=== PATIENT | male | born 1985 | race Caucasian/White ===

== ENCOUNTER 2020-03-04 09:16 | Outpatient (CLI) | payer BC ==
--- NOTE | 2020-03-04 11:49 | RAD ---
LEFT SHOULDER 3 VIEWS: Date: 03/04/2020 HISTORY: Left shoulder pain. FINDINGS/IMPRESSION: No fracture, dislocation, or bony destruction is identified. POS: [facility]
== END 2020-03-04 09:17 | disposition home or self-care (01) ==
LOC: SCSRAD 09:16
PROVIDERS: ATTEND Family Medicine
DX: M25.512 Pain in left shoulder (principal)

== ENCOUNTER 2024-06-20 13:29 | Outpatient (CLI) | payer BC | END 2024-06-20 13:30 | disposition home or self-care (01) | LOC: SCSRAD 13:29 | PROVIDERS: ATTEND Family Medicine | DX: R07.9 Chest pain, unspecified (principal) | CPT/HCPCS: 71046 ==

== ENCOUNTER 2024-06-21 04:55 | Inpatient (IN) | payer BC ==
[2024-06-21] MEDS ORDERED: Acetaminophen 325 MG TAB PO PRN (05:08)
[2024-06-21] MEDS ORDERED: Acetaminophen 650 MG Suppository PR PRN (05:08)
[2024-06-21] MEDS ORDERED: Calcium Carbonate 500 MG ChewTAB PO PRN (05:08)
[2024-06-21] MEDS ORDERED: Ondansetron ODT 4 MG TAB PO PRN (05:08)
[2024-06-21] MEDS ORDERED: Midazolam HCl 2 mg/2 ml Vial ONE (05:24)
[2024-06-21] MEDS ORDERED: fentaNYL 50 mcg/mL 1 mL Vial ONE (05:45)
[2024-06-21] MEDS ORDERED: TICAGRELOR 90 MG TABLET ONE (06:16)
[2024-06-21] MEDS ORDERED: Dextrose 50% Abboject 50 ML SYRINGE SLOW IVP PRN (08:51)
[2024-06-21] MEDS ORDERED: Glucagon 1 MG/ML KIT IM PRN (08:51)
[2024-06-21] MEDS ORDERED: Dextrose 5% in Water 1,000 ML IV PRN (08:51)
[2024-06-21] MEDS: Ondansetron PF 4 MG/2 ML Vial IVP PRN (08:53)
[2024-06-21] MEDS: Morphine 4 MG/ML VIAL ONE (08:56)
[2024-06-21] MEDS: Sodium Chloride 0.9% 1,000 ML IV SCH (09:17)
[2024-06-21] MEDS: Aspirin Chewable 81 MG TAB PO SCH (09:18)
[2024-06-21] MEDS: Famotidine/PF 20 mg/2ml Vial SLOW IVP SCH (09:18)
[2024-06-21] MEDS: Famotidine 20 MG TAB PO SCH (09:19)
[2024-06-21] MEDS: TICAGRELOR 90 MG TABLET PO SCH (09:19)
[2024-06-21 09:46] LABS: Troponin I 29.676 ng/mL (< 0.028)
[2024-06-21] MEDS: Colchicine 0.6 MG TAB PO SCH (10:19)
[2024-06-21 11:51] VITALS: BMI 32.2
[2024-06-21] MEDS ORDERED: Iopamidol 370 76% 100 ML VIAL ONE (12:44)
[2024-06-21 15:33] LABS: Critical Call Chem Troponin I RESULT DECREASING; Troponin I 22.173 ng/mL (< 0.028)
[2024-06-21] MEDS: Morphine 2 MG/ML VIAL SLOW IVP PRN (17:28)
[2024-06-21] MEDS: Atorvastatin Calcium 40 MG TAB PO SCH (20:10)
[2024-06-21] MEDS: Ketorolac Tromethamine 30 MG (1 mL) VIAL IVP SCH (20:10)
[2024-06-21] MEDS: Insulin Regular, Human 100 UNIT/ML 10 ML VIAL SC PRN (21:55)
[2024-06-21 22:15] LABS: Troponin I 15.692 ng/mL (< 0.028)
[2024-06-22 04:07] LABS: #Basophils 0.03 10x3/uL (0.0-0.2); %Basophils 0.4 % (0.0-1.0); %Eosinophils 0.6 % (0.0-10.0); %Lymphocytes 13.9 % (21.0-51.0); %Monocytes 10.4 % (0.0-10.0); %Neutrophils 74.2 % (42.0-75.0); Hematocrit 38.8 % (42.0-52.0); Hemoglobin 13.2 g/dL (14.0-18.0); Mean Corpuscular Hemoglobin 28.5 pg (27.0-31.0); Mean Corpuscular Volume 83.8 fL (78.0-98.0); Mean Platelet Volume 11.1 fL (7.4-10.4); Platelet Count 151 10x3/uL (130-400); RBC Distribution Width 12.6 % (11.5-14.5); Red Blood Cell (RBC) Count 4.63 mill/uL (4.70-6.10)
[2024-06-22 05:53] LABS: ALT (SGPT) 20 U/L (Less than 45); AST (SGOT) 29 U/L (11-34); Albumin 2.9 g/dL (3.1-4.5); Alkaline Phosphatase 67 U/L (40-110); Anion Gap 15 mmol/L (10-20); BUN (Urea Nitrogen) 12 mg/dL (8.9-20.6); Bilirubin, Total 0.8 mg/dL (0.3-1.2); Calc. Creatinine Clearance 154 mL/min (70-130); Calcium 8.7 mg/dL (7.8-10.44); Carbon Dioxide 24 mmol/L (22-29); Chloride 102 mmol/L (98-107); Estimated GFR 108; Globulin 3.7 g/dL (2.4-3.5); Glucose 273 mg/dL (70-105); Potassium 3.7 mmol/L (3.5-5.1); Protein, Total 6.6 g/dL (6.0-8.3); Sodium 137 mmol/L (136-145)
[2024-06-22 08:19] VITALS: TEMP 98.1
[2024-06-22] MEDS: TICAGRELOR 90 MG TABLET PO SCH (09:43)
[2024-06-22 16:45] VITALS: BP 108/77
== END 2024-06-22 17:36 | disposition home or self-care (01) | DRG 322 ==
LOC: ERS 04:55 → CCL 05:06 → CCU 07:04 → PCU 18:35
PROVIDERS: ADMIT Student in an Organized Health Care Education/Training Program; ATTEND Student in an Organized Health Care Education/Training Program
PROC: 027034Z Dilation of Coronary Artery, One Artery with Drug-eluting Intraluminal Device, Percutaneous Approach (ICD-10-PCS; principal; 2024-06-21)
PROC: 4A023N7 Measurement of Cardiac Sampling and Pressure, Left Heart, Percutaneous Approach (ICD-10-PCS; 2024-06-21)
PROC: B2151ZZ Fluoroscopy of Left Heart using Low Osmolar Contrast (ICD-10-PCS; 2024-06-21)
PROC: B2111ZZ Fluoroscopy of Multiple Coronary Arteries using Low Osmolar Contrast (ICD-10-PCS; 2024-06-21)
DX: I21.19 ST elevation (STEMI) myocardial infarction involving other coronary artery of inferior wall (principal); E11.9 Type 2 diabetes mellitus without complications; M10.9 Gout, unspecified; Z88.8 Allergy status to other drugs, medicaments and biological substances; E78.1 Pure hyperglyceridemia; Z79.899 Other long term (current) drug therapy
CPT/HCPCS: 36140; 36415; 36416; 71045; 80053; 83735; 83880; 84484; 85025; 85347; 85379; 92941; 93005; 93010; 93458; 93798; 96374; 96375; 96376; 99152; 99153; 99285; C1725; C1769; C1874; C1887; C1894; C9606; J1644; J1815; J1885; J2250; J2270; J2272; J2405; J3010; J3490; J7030; Q9967